=== PATIENT | female | born 1955 | race Caucasian/White ===

== ENCOUNTER 2020-06-07 09:29 | Emergency (ER) | payer OTHER ==
[~2020-06-07] VITALS: Ht 160 cm; Wt 88.9 kg
[2020-06-07 09:38] VITALS: Ht 160 cm; Wt 88.9 kg
[2020-06-07 11:47] VITALS: BP 148/94
== END 2020-06-07 11:47 | disposition home or self-care (01) ==
LOC: ED 09:29
DX: T36.8X5A Adverse effect of other systemic antibiotics, initial encounter (principal); I10 Essential (primary) hypertension; Z98.890 Other specified postprocedural states; Z88.0 Allergy status to penicillin; Y92.89 Other specified places as the place of occurrence of the external cause
CPT/HCPCS: J1100; Q0163

== ENCOUNTER 2020-09-24 16:46 | Inpatient (IN) | payer SELFPAY ==
[~2020-09-24] VITALS: Ht 160 cm; Wt 78.9 kg
[2020-09-24 16:54] VITALS: Ht 160 cm; Wt 78.9 kg
[2020-09-24 18:34] LABS: BASOPHIL % 0.4 % (0.2-1.3); RED CELL DISTRIBUTION WIDTH 13.4 % (12.3-17.7)
[2020-09-24 18:36] LABS: PLATELET COUNT 404 x10^3mcL (179-408)
[2020-09-24 18:46] LABS: ALBUMIN 4.2 g/dL (3.4-5.0); BILIRUBIN TOTAL 1.2 mg/dL (0.20-1.00); CALCIUM 10.3 mg/dL (8.5-10.1); CARBON DIOXIDE 29.4 mmol/L (21-32); CREATININE SERUM 2.2 mg/dL (0.6-1.0)
[2020-09-24 18:54] LABS: TOTAL PROTEIN, SERUM 8.7 g/dL (6.4-8.2)
[2020-09-24 18:56] LABS: POTASSIUM SERUM 2.7 mmol/L (3.5-5.1)
[2020-09-24] MEDS ORDERED: COZAAR100 MG PO (23:05)
[2020-09-24] MEDS ORDERED: PROZAC10 M2 PO (23:06)
[2020-09-24] MEDS ORDERED: MICROZIDE12.5 MG PO (23:06)
[2020-09-25 05:19] VITALS: BP 120/81
[2020-09-25 08:32] LABS: BASOPHIL % 0.2 % (0.2-1.3); PLATELET COUNT 322 x10^3mcL (179-408); RED CELL DISTRIBUTION WIDTH 13.8 % (12.3-17.7)
[2020-09-25 08:52] LABS: CALCIUM 9.5 mg/dL (8.5-10.1); CARBON DIOXIDE 35.4 mmol/L (21-32); CREATININE SERUM 1.9 mg/dL (0.6-1.0); MAGNESIUM 2.8 mg/dL (1.8-2.4); PHOSPHOROUS 4.5 mg/dL (2.5-4.9)
[2020-09-25 09:32] VITALS: BP 114/65
[2020-09-25 09:49] LABS: POTASSIUM SERUM 2.8 mmol/L (3.5-5.1)
[2020-09-25 14:22] VITALS: BP 111/49
[2020-09-25 14:55] VITALS: BP 99/51
[2020-09-25 15:31] LABS: CHOLESTEROL/HDL RATIO 3.9
[2020-09-25 17:03] LABS: UA SPECIFIC GRAVITY >=1.030 (1.005-1.035); microscopic required? YES; urine erythrocyte NEGATIVE (NEGATIVE)
[2020-09-25 17:15] VITALS: BP 100/41
[2020-09-25 17:44] LABS: AMPHETAMINE QUAL UR NONE DETECTED (See below)
[2020-09-25 20:08] VITALS: BP 115/51
[2020-09-26 05:49] VITALS: BP 141/75
[2020-09-26 08:00] LABS: BASOPHIL % 0.4 % (0.2-1.3); PLATELET COUNT 308 x10^3mcL (179-408); RED CELL DISTRIBUTION WIDTH 13.7 % (12.3-17.7)
[2020-09-26 08:14] LABS: CALCIUM 9.2 mg/dL (8.5-10.1); CREATININE SERUM 1.4 mg/dL (0.6-1.0); MAGNESIUM 2.7 mg/dL (1.8-2.4); PHOSPHOROUS 1.9 mg/dL (2.5-4.9); POTASSIUM SERUM 3.3 mmol/L (3.5-5.1)
[2020-09-26 08:57] VITALS: BP 142/79
[2020-09-26 12:06] VITALS: BP 113/61
[2020-09-26 17:10] VITALS: BP 142/87
[2020-09-26 21:12] VITALS: BP 139/67
[2020-09-27 05:31] VITALS: BP 119/63
[2020-09-27 07:32] LABS: BASOPHIL % 0.4 % (0.2-1.3); PLATELET COUNT 265 x10^3mcL (179-408); RED CELL DISTRIBUTION WIDTH 13.9 % (12.3-17.7)
[2020-09-27 08:19] LABS: CALCIUM 8.9 mg/dL (8.5-10.1); CARBON DIOXIDE 31.1 mmol/L (21-32); CREATININE SERUM 1.2 mg/dL (0.6-1.0); MAGNESIUM 2.1 mg/dL (1.8-2.4); PHOSPHOROUS 2.2 mg/dL (2.5-4.9); POTASSIUM SERUM 3.1 mmol/L (3.5-5.1)
[2020-09-27 08:43] VITALS: BP 140/85
[2020-09-27 12:26] VITALS: BP 146/83
[2020-09-27 17:12] VITALS: BP 157/81
[2020-09-27 20:35] VITALS: BP 169/75
[2020-09-28 05:10] VITALS: BP 134/75
[2020-09-28 06:30] VITALS: BP 191/78
[2020-09-28 07:52] LABS: BASOPHIL % 0.4 % (0.2-1.3); PLATELET COUNT 242 x10^3mcL (179-408); RED CELL DISTRIBUTION WIDTH 13.5 % (12.3-17.7)
[2020-09-28 08:49] LABS: CALCIUM 9.3 mg/dL (8.5-10.1); CARBON DIOXIDE 27.8 mmol/L (21-32); CREATININE SERUM 1.1 mg/dL (0.6-1.0); POTASSIUM SERUM 3.1 mmol/L (3.5-5.1)
[2020-09-28 09:06] VITALS: BP 136/77
[2020-09-28 12:58] VITALS: BP 124/75
[2020-09-28 17:30] VITALS: BP 121/81
[2020-09-28 21:39] VITALS: BP 125/64
[2020-09-29 07:53] LABS: CARBON DIOXIDE 25.9 mmol/L (21-32); CREATININE SERUM 1.2 mg/dL (0.6-1.0); POTASSIUM SERUM 3.1 mmol/L (3.5-5.1)
[2020-09-29 08:00] VITALS: BP 144/73
[2020-09-29 09:25] LABS: MAGNESIUM 1.8 mg/dL (1.8-2.4); PHOSPHOROUS 2.9 mg/dL (2.5-4.9)
[2020-09-29 14:00] VITALS: BP 131/71
[2020-09-29 21:41] VITALS: BP 140/73
[2020-09-30 06:01] VITALS: BP 135/61
[2020-09-30 07:55] LABS: BASOPHIL % 0.4 % (0.2-1.3); PLATELET COUNT 215 x10^3mcL (179-408); RED CELL DISTRIBUTION WIDTH 13.3 % (12.3-17.7)
[2020-09-30 08:21] LABS: CALCIUM 9.4 mg/dL (8.5-10.1); CARBON DIOXIDE 26.9 mmol/L (21-32); CREATININE SERUM 1.2 mg/dL (0.6-1.0); POTASSIUM SERUM 4.3 mmol/L (3.5-5.1)
[2020-09-30 19:27] VITALS: BP 150/74
[2020-10-01 04:35] VITALS: BP 119/80
[2020-10-01 07:31] LABS: BASOPHIL % 0.5 % (0.2-1.3); PLATELET COUNT 239 x10^3mcL (179-408); RED CELL DISTRIBUTION WIDTH 13.6 % (12.3-17.7)
[2020-10-01 07:41] LABS: CALCIUM 9.2 mg/dL (8.5-10.1); CARBON DIOXIDE 26.3 mmol/L (21-32); CHLORIDE SERUM 107 mmol/L (98-107); CREATININE SERUM 0.9 mg/dL (0.6-1.0); GFR1 > 60 mL/min; GLUCOSE SERUM 96 mg/dL (74-106); POTASSIUM SERUM 4.1 mmol/L (3.5-5.1); SODIUM SERUM 139 mmol/L (136-145)
[2020-10-01 08:38] VITALS: BP 137/87
[2020-10-01 16:50] VITALS: BP 98/55
[2020-10-01 21:15] VITALS: BP 123/60
[2020-10-02 05:47] VITALS: BP 116/56
[2020-10-02 08:23] LABS: BASOPHIL % 0.2 % (0.2-1.3); PLATELET COUNT 218 x10^3mcL (179-408); RED CELL DISTRIBUTION WIDTH 13.7 % (12.3-17.7)
[2020-10-02 08:41] LABS: BILIRUBIN TOTAL 0.42 mg/dL (0.20-1.00); CALCIUM 9.2 mg/dL (8.5-10.1); CARBON DIOXIDE 27.3 mmol/L (21-32); MAGNESIUM 2.1 mg/dL (1.8-2.4); PHOSPHOROUS 2.9 mg/dL (2.5-4.9); POTASSIUM SERUM 4.4 mmol/L (3.5-5.1)
[2020-10-02 08:53] VITALS: BP 125/56
[2020-10-02 09:14] LABS: ALBUMIN 2.6 g/dL (3.4-5.0); TOTAL PROTEIN, SERUM 5.9 g/dL (6.4-8.2)
[2020-10-02 12:13] VITALS: BP 111/45
[2020-10-02 16:59] VITALS: BP 113/63
[2020-10-02 21:05] VITALS: BP 143/73
[2020-10-03 07:13] VITALS: BP 114/55
[2020-10-03 07:43] LABS: BASOPHIL % 0.4 % (0.2-1.3); PLATELET COUNT 231 x10^3mcL (179-408); RED CELL DISTRIBUTION WIDTH 13.7 % (12.3-17.7)
[2020-10-03 07:51] LABS: ALKALINE PHOSPHATASE 51 U/L (46-116); ALT/SGPT 41 U/L (14-59); AST/SGOT 30 U/L (15-37); BILIRUBIN TOTAL 0.4 mg/dL (0.20-1.00); CALCIUM 9.4 mg/dL (8.5-10.1); CARBON DIOXIDE 25.3 mmol/L (21-32); CHLORIDE SERUM 104 mmol/L (98-107); CREATININE SERUM 0.9 mg/dL (0.6-1.0); GFR1 > 60 mL/min; GLUCOSE SERUM 71 mg/dL (74-106); MAGNESIUM 2.1 mg/dL (1.8-2.4); PHOSPHOROUS 2.6 mg/dL (2.5-4.9); SODIUM SERUM 138 mmol/L (136-145)
[2020-10-03 08:08] LABS: ALBUMIN 2.6 g/dL (3.4-5.0); TOTAL PROTEIN, SERUM 5.9 g/dL (6.4-8.2)
[2020-10-03 09:23] VITALS: BP 127/69
[2020-10-03 12:39] VITALS: BP 110/56
[2020-10-03] MEDS ORDERED: HYDROCHLOROTHIA25 MG PO (14:20)
[2020-10-03] MEDS ORDERED: FLUOXETINE20 M3 PO (14:20)
[2020-10-03 17:18] VITALS: BP 110/56
== END 2020-10-03 17:31 | disposition home or self-care (01) | DRG 853 ==
LOC: ED 16:46 → MU 21:43
PROVIDERS: Emergency Medicine; Family Medicine; Internal Medicine Gastroenterology; Surgery; ADMIT Internal Medicine; ATTEND Internal Medicine
PROC: 0D9680Z Drainage of Stomach with Drainage Device, Via Natural or Artificial Opening Endoscopic (ICD-10-PCS; principal; 2020-09-25 12:00)
PROC: BF131ZZ Fluoroscopy of Gallbladder and Bile Ducts using Low Osmolar Contrast (ICD-10-PCS; 2020-10-01)
PROC: 0DH63UZ Insertion of Feeding Device into Stomach, Percutaneous Approach (ICD-10-PCS; 2020-10-01)
PROC: 0DS64ZZ Reposition Stomach, Percutaneous Endoscopic Approach (ICD-10-PCS; 2020-10-01 08:30)
PROC: 0FPB8DZ Removal of Intraluminal Device from Hepatobiliary Duct, Via Natural or Artificial Opening Endoscopic (ICD-10-PCS; 2020-10-01 08:30)
PROC: 0FC98ZZ Extirpation of Matter from Common Bile Duct, Via Natural or Artificial Opening Endoscopic (ICD-10-PCS; 2020-10-01 08:30)
DX: A41.9 Sepsis, unspecified organism (principal); N17.0 Acute kidney failure with tubular necrosis; Z20.822 Contact with and (suspected) exposure to COVID-19; I10 Essential (primary) hypertension; Z90.710 Acquired absence of both cervix and uterus; K44.9 Diaphragmatic hernia without obstruction or gangrene; K31.89 Other diseases of stomach and duodenum; Z90.49 Acquired absence of other specified parts of digestive tract; Z79.899 Other long term (current) drug therapy; E86.0 Dehydration; Z88.0 Allergy status to penicillin; E87.6 Hypokalemia; Z88.8 Allergy status to other drugs, medicaments and biological substances; R73.9 Hyperglycemia, unspecified
CPT/HCPCS: 43235; 82962; A9698; C1769; C9113; G0378; J0690; J0696; J0744; J0780; J1170; J1200; J1610; J1885; J1940; J2001; J2060; J2250; J2270; J2310; J2405; J3010; J3480; J3490; J7030; J7040; J7042; J7060; J7131; Q9967; U0003